=== PATIENT | male | born 1935 | race Caucasian/White ===

== ENCOUNTER 2019-10-11 15:05 | Inpatient (IN) | payer MEDICARE, OTHER ==
[~2019-10-11 15:05] MED LIST: Iopamidol 370 76% 100 ML VIAL ONE
[2019-10-11 17:01] LABS: #Monocytes 1.2 thou/uL (0.11-0.59); #Neutrophils 10.4 thou/uL (1.40-6.50); %Eosinophils 0.3 % (0.0-10.0); %Lymphocytes 14.5 % (21.0-51.0); %Monocytes 8.6 % (0.0-10.0); %Neutrophils 76.6 % (42.0-75.0); Hemoglobin 13.1 g/dL (14.0-18.0); Mean Corpuscular HGB CONC 35.3 g/dL (32.0-36.0); Mean Corpuscular Hemoglobin 29.7 pg (27.0-31.0); Mean Corpuscular Volume 84.3 fL (78.0-98.0); Mean Platelet Volume 9.1 fL (7.4-10.4); Platelet Count 153 thou/uL (130-400); RBC Distribution Width 16.5 % (11.5-14.5); Red Blood Cell (RBC) Count 4.41 mill/uL (4.70-6.10); White Blood Cell (WBC) Count 13.6 thou/uL (4.8-10.8)
[2019-10-11 17:10] LABS: Bacteria/HPF None Seen HPF (None Seen); Bilirubin Negative (Negative); Blood, Urine Trace (Negative); Clarity Clear (Clear); Glucose, Urine (Dipstick) Normal (Negative); Leukocyte 75 Leu/uL (Negative); Nitrite Negative (Negative); Protein, Urine (Dipstick) 20 mg/dL (Neg-Trace); Squamous Epithelial 0-3 HPF (0-3); Urobilinogen Normal mg/dL (Less than 2)
[2019-10-11 17:23] LABS: ALT (SGPT) 10 U/L (8-55); AST (SGOT) 13 U/L (5-34); Albumin 4.2 g/dL (3.4-4.8); Alkaline Phosphatase 90 U/L (40-110); Anion Gap 11 mmol/L (10-20); BUN (Urea Nitrogen) 26 mg/dL (8.4-25.7); Bilirubin, Total 1.7 mg/dL (0.2-1.2); Calc. Creatinine Clearance 0 mL/min (70-130); Calcium 9.7 mg/dL (7.8-10.44); Carbon Dioxide 24 mmol/L (23-31); Chloride 98 mmol/L (98-107); Estimated GFR-MDRD 33; Globulin 2.3 g/dL (2.4-3.5); Glucose 100 mg/dL (83-110); Lipase 6 U/L (8-78); Protein, Total 6.5 g/dL (5.8-8.1); Sodium 128 mmol/L (136-145)
[2019-10-11] MEDS ORDERED: Morphine 4 MG/ML VIAL ONE (17:35)
--- NOTE | 2019-10-11 18:09 | CT ---
CT abdomen and pelvis with IV contrast. Oral contrast was not administered. INDICATIONS: Abdominal pain and constipation COMPARISON: CT abdomen pelvis 01/27/2017 FINDINGS: Large fixed diaphragmatic hernia again noted on images through the lung bases. Stomach is above the d iaphragm. This is stable finding. Liver, spleen, and pancreas appear unremarkable. Abnormal soft tissue density seen in the gallbladder fundus. This could represent sludge although fun gal mass lesion not excluded. This is new finding from prior exam. Duodenum unremarkable. Right adrenal nodular mass lesion measuring 1.5 cm is stable Moderate left hydronephrosis with hydroureter. 7 mm calculus in the distal left ureter. Right kidney unremarkable Small bowel loops are normal caliber and exhibit normal fold pattern. Appendix is identified and appears unremarkable. Scattered stool and gas throughout colon. Aorta is normal caliber. No evidence of retroperitoneal or mesenteric adenopathy. Mild prostatic hypertrophy with prostatic calcifications. Subcutaneous tissues, abdominal wall, and muscular structures appear unremarkable. Osseous structures appear unremarkable. IMPRESSION: 1. 7 mm calculus distal left ureter with moderate left hydronephrosis 2. Soft tissue density in the gallbladder fundus. Gallbladder sludge and stones not excluded. Soft ti ssue mass lesion not excluded. Correlate with elective gallbladder ultrasound. 3. Large fixed diaphragmatic hernia again noted 4. Right adrenal mass lesion is stable
[2019-10-11] MEDS ORDERED: Acetaminophen 325 MG TAB PO PRN (21:22)
[2019-10-11] MEDS ORDERED: Ondansetron PF 4 MG/2 ML Vial IVP PRN (21:22)
[2019-10-11] MEDS ORDERED: Ondansetron ODT 4 MG TAB SL PRN (21:22)
[2019-10-11] MEDS ORDERED: HYDROcodone/Acetaminophen 5/325 mg Tablet PO PRN ×2 (21:22)
[2019-10-11 21:39] VITALS: BMI 28.6
[2019-10-11] MEDS: Sodium Chloride 0.9% 1,000 ML IV SCH (23:25)
--- NOTE | 2019-10-12 01:20 | HP ---
CHIEF COMPLAINT: Abdominal pain. HISTORY OF PRESENT ILLNESS: This patient is 83-year-old male who presented to the emergency department. Patient reports he has had intermittent left lower quadrant pain over the past month or so. Over the last 3 to 4 days, he has had no bowel movement, thought he was constipated. He has a little bit of a difficult historical source, but it sounds like he tried a laxative and was not getting any relief with that. Describes the pain is somewhat positional. Says it is primarily in the left lower quadrant when he is on his left side, it hurts more but sometimes when he lies on his right side, he feels it more on the right side. He does admit to a little bit of associated back pain. He also reports 1 to 2 months of some urinary hesitancy. REVIEW OF SYSTEMS: Patient had one episode of vomiting over the past week. Denies any fevers or chills. He also has had intermittent hiccups that have caused him to have some increased pain in his left lower quadrant as mentioned above, urinary hesitancy. All other systems reviewed and were negative, except for those things mentioned in history of present illness. 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 He has been treated at [facility] by Dr. Desir and states that all of these appeared to be resolved at that time. He has history of hypertension, reflux, hiatal hernia, and abdominal aortic aneurysm. History of atrial fibrillation, not currently on any type of oral anticoagulant therapy for reasons that are not known at the moment, but likely related to his prior hemolytic anemia. PAST SURGICAL HISTORY: Hernia repair x2, repair of a deviated septum, knee surgery, multiple skin surgeries related to various skin cancers. FAMILY HISTORY: Notable for coronary artery disease in his father and a brother who had a history of cancer. SOCIAL HISTORY: Patient is . He and his live themselves. He smoked for about five years remotely. He was a former drinker, has not drank in over 30 years. ALLERGIES: DOXYCYCLINE. CURRENT MEDICATIONS: 1. Metoprolol 50 mg daily. 2. Magnesium 250 mg daily. 3. Ondansetron 8 mg daily p.r.n. nausea, vomiting. 4. B12, 1000 mcg p.o. daily. 5. Multivitamin one p.o. daily. 6. Diltiazem 120 mg daily. 7. Digoxin 0.125 mg p.o. daily. 8. Omeprazole 20 mg daily. 9. Loratadine 10 mg daily. 10. Tamsulosin 0.4 mg at bedtime. 11. Tramadol 50 mg p.o. daily. PHYSICAL EXAMINATION: VITAL SIGNS: Temperature is 97.5, pulse 69, respirations 18, O2 saturation 97% on room air, and BP 134/72. GENERAL APPEARANCE: Age-appropriate male, in no distress. He is hard of hearing, but pleasant and cooperative. HEENT: PERRL. No OP lesions. He does have several scarred areas on his scalp from looks like prior surgical incisions. NECK: Supple and symmetric. HEART: Regular rate and rhythm. No murmurs, gallops, or rubs. LUNGS: Clear to auscultation bilaterally. ABDOMEN: Soft, nontender, and nondistended. Positive bowel sounds. There is very mild left CVAT. EXTREMITIES: No cyanosis, clubbing, or edema. PSYCH: Normal affect and behavior. NEUROLOGIC: Cranial nerves appear to be intact, although he does have some hearing deficit. Cognitively, appears to be generally intact. EXTREMITIES: All move normally. He has a very slightly unsteady gait when getting up and going to the bathroom, but managed well and has no other focal deficits. LABORATORY DATA: White count 13.6, hemoglobin 13.1, and platelets 153. Sodium 128, potassium 5.0, chloride 98, CO2 of 24, BUN 26, creatinine is 1.97, glucose 100, lactic acid 1.2, total bili 1.7, AST 13, ALT 10, albumin 4.2, and lipase 6. Urinalysis notable for leukocyte esterase present, rbc's 4 to 6, wbc [address] abdomen and pelvis reveals a 7 mm left distal ureteral stone with moderate left hydronephrosis. Soft tissue density in the gallbladder fundus, could be stone or sludge. Large fixed diaphragmatic hernia which is stable and right adrenal mass lesion that is also stable. IMPRESSION AND PLAN: 1. Left ureterolithiasis with associated left hydroureter. The patient was discussed with between Dr. Dr. Canada and the emergency room physician. His plan is to have the patient in the hospital and undergo ureteral stent. The patient will be made n.p.o. after midnight, p.r.n. pain medications, and consult Urology officially. 2. Constipation. Patient does not appear to have significant constipation with his CT scan, likely related to his ureterolithiasis. We will await possible stent placement and then consider the possibility of some type of cathartic if necessary at that time. 3. Acute on chronic kidney injury, probably due to the stone. Patient's current GFR is at 33, looks like his baseline ranges in the 50s to 70s. However, his most recent was 51 on August 04. We will give him some fluids and see how he responds after the stone is removed. 4. Hyponatremia. I suspect this is related to the patient's stone. He has had episodes in the past going back to 2014 of some hyponatremia. This does not appear to be terribly severe. He does not appear to be symptomatic and again we will see how he response after the procedure and some hydration. 5. Elevated bilirubin. This is present going back to 2015. Does not appear to be acute. 6. Mild leukocytosis. Really does not appear to have significant evidence of infection in the urine, but he does have a little bit of leukocytosis and a few white blood cells, so I am going to go and cover him with a dose of Rocephin for now. 7. History of atrial fibrillation, currently in sinus rhythm, not on any anticoagulation, but several medications for rate control. We will need to try to investigate further what the reason is for him not being on anticoagulation previously, although at this juncture, probably better that he not be given the need for the stent placement. Job ID: [id number]
[2019-10-12 05:52] LABS: #Eosinphils 0.1 thou/uL (0.0-0.7); #Lymphocytes 1.8 thou/uL (1.20-3.40); #Monocytes 1.3 thou/uL (0.11-0.59); #Neutrophils 9.8 thou/uL (1.40-6.50); %Basophils 0.2 % (0.0-1.0); %Eosinophils 0.6 % (0.0-10.0); %Monocytes 9.7 % (0.0-10.0); %Neutrophils 75.5 % (42.0-75.0); Hemoglobin 12.3 g/dL (14.0-18.0); Mean Corpuscular HGB CONC 34.6 g/dL (32.0-36.0); Mean Corpuscular Hemoglobin 29.1 pg (27.0-31.0); Mean Corpuscular Volume 84.1 fL (78.0-98.0); Mean Platelet Volume 8.8 fL (7.4-10.4); Platelet Count 147 thou/uL (130-400); RBC Distribution Width 16.2 % (11.5-14.5); Red Blood Cell (RBC) Count 4.23 mill/uL (4.70-6.10)
[2019-10-12 06:12] LABS: Anion Gap 12 mmol/L (10-20); BUN (Urea Nitrogen) 22 mg/dL (8.4-25.7); Calc. Creatinine Clearance 36 mL/min (70-130); Calcium 8.7 mg/dL (7.8-10.44); Carbon Dioxide 19 mmol/L (23-31); Chloride 101 mmol/L (98-107); Estimated GFR-MDRD 36; Glucose 90 mg/dL (83-110); Potassium 4.4 mmol/L (3.5-5.1); Sodium 128 mmol/L (136-145)
[2019-10-12] MEDS: traMADol HCl 50 MG TAB PO SCH (09:25)
[2019-10-12] MEDS: Digoxin 0.125 MG TAB PO SCH (09:28)
[2019-10-12] MEDS: Loratadine 10 MG TAB PO SCH (09:28)
[2019-10-12] MEDS: Metoprolol Tartrate 50 MG TAB PO SCH (09:28)
[2019-10-12] MEDS ORDERED: EPHEDRINE 25 MG/5 ML SYRINGE ONE (09:35)
[2019-10-12] MEDS ORDERED: Dexamethasone 20 MG/5 ML VIAL ONE (09:35)
[2019-10-12] MEDS ORDERED: Ondansetron PF 4 MG/2 ML Vial ONE (09:35)
[2019-10-12] MEDS ORDERED: Lidocaine 1% PF 5 ML VIAL ONE (09:35)
[2019-10-12] MEDS ORDERED: PROPOFOL 200 MG/20 ML VIAL ONE (09:35)
[2019-10-12] MEDS ORDERED: PHENYLEPHRINE-NS 100 MCG/ML 10 ML SYRINGE ONE (09:35)
--- NOTE | 2019-10-12 10:50 | CON ---
DATE OF CONSULTATION: 10/12/2019 CONSULTING: Emergency room. REASON FOR CONSULTATION: Ureteral stone with acute kidney injury. HISTORY OF PRESENT ILLNESS: Mr. Chaudhari is an 83-year-old white male, who presented to the emergency department with approximately a 3-day history of severe lower abdominal pain and constipation over the last 3 to 4 days. He states he has not had any bowel movements this time and thought he was constipated. He started taking laxatives and stated that he did get a bowel movement, but was not feeling any better from the lower abdominal pain. It started in the left lower quadrant and then began radiating over to the right lower quadrant. He stated the pain got up to about 8/10 at its worst. After several days of not feeling well, not eating or drinking, his brought him into the emergency room where he underwent a CT scan, which demonstrated a 7-mm distal left ureteral stone. There were no other stones noted at that time. I was then consulted for further assistance on this issue. The patient reports that his primary urologist is Dr. Yordan Yancey. He has had multiple stones in the past, some of which have been treated, most of which have passed on their own. He also has a history of CLL, but this is currently just being monitored without any active chemotherapy. He has not noticed any blood in his urine, but states his urine does appear dark. He denies any fevers. His creatinine was elevated about 1.8 to 1.9 over his baseline of around 1.3. He reports no difficulty with urination, but has only been having small voids over the past few days. He denies any nausea or vomiting currently and again denies any fevers. ALLERGIES: DOXYCYCLINE. CURRENT HOME MEDICATIONS: 1. Metoprolol. 2. Magnesium. 3. Zofran. 4. B12. 5. Multivitamins. 6. Diltiazem. 7. Digoxin. 8. Omeprazole. 9. Loratidine. 10. Tamsulosin. 11. Tramadol. PAST MEDICAL HISTORY: 1. Squamous cell carcinoma of the skin. 2. 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 3. Chronic lymphocytic leukemia. 4. History of hemolytic anemia, requiring blood transfusions. 5. Hypertension. 6. Gastroesophageal reflux disease. 7. Hiatal hernia. 8. Abdominal aortic aneurysm. 9. Atrial fibrillation. PAST SURGICAL HISTORY: 1. Hernia repairs x2. 2. Surgery for deviated septum. 3. Knee surgeries. 4. Skin surgeries related to various skin cancers. FAMILY HISTORY: Significant for coronary artery disease. SOCIAL HISTORY: The patient is . He and his live at home. He has a history of smoking in the past, but states he quit. 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 He denies any illicit drug use. REVIEW OF SYSTEMS: A 12-point review of systems reviewed and negative other than what was commented on the HPI. PHYSICAL EXAMINATION: VITAL SIGNS: Temperature 98.6, pulse 76, respirations 18, blood pressure 126/73, and saturation 95% on room air. GENERAL: No apparent distress. Appears stated age. Communicative and alert. Well nourished and well developed. Average weight. HEENT: Normocephalic and atraumatic. Pupils are symmetric and round. Trachea midline. Moist mucous membranes. CARDIOVASCULAR: Regular rate, irregular rhythm. Normal S1 and S2. Symmetric pulses. CHEST: No increased work of breathing. Symmetric expansion of lungs. Clear anteriorly. ABDOMEN: Soft, nondistended. Slight tenderness to palpation on the right lower quadrant, more tenderness to palpation in the left lower quadrant. Positive bowel sounds. No obvious organomegaly or hernias identified. GENITOURINARY: Deferred at this time. EXTREMITIES: No clubbing, cyanosis, or edema. MUSCULOSKELETAL: No joint deformity or joint erythema noted. Full range of motion. SKIN: Patchy skin appearance secondary to sun damage. No obvious concerning lesions. The patient is alopecic, poor turgor. No other rashes or lesions noted. NEUROLOGIC: Cranial nerves 2 through 12 grossly intact. No focal or sensory motor deficits identified. PSYCHIATRIC: Alert and oriented x3. Appropriate mood and affect. LABORATORY EVALUATION: Full set of labs are in the [facility] system, which I have reviewed. Of note, the patient's white count is 13 with a hemoglobin of 12.3. Creatinine is 1.8 down from 1.97. Urinalysis demonstrates trace blood, 4 to 6 rbc's, 11 to 20 wbc's, no bacteria seen. CT done on 10/10 without contrast demonstrates a 7-mm distal left ureteral stone with hydronephrosis. No other stones identified within the urinary tract. There is a soft tissue density in the gallbladder fundus, a large fixed diaphragmatic hernia again which was noted and a stable right adrenal mass. ASSESSMENT AND PLAN: An 83-year-old white male with a left distal ureteral stone and acute kidney injury with hydronephrosis with no strong evidence of infection currently. That said, given his age, acute kidney injury, slight elevation in white count, and wbc's in the urine, I would not necessarily recommend ureteroscopy at the current time, I think a ureteral stent would be better to allow for his kidney to recover, after which point a urine culture can be taken to ensure that there is no infection. If this is clear, I think the patient can go for ureteroscopy and removal of the stone and subsequent stent removal. I will contact Dr. Yordan Yancey, his primary urologist, for intervention. If Dr. Yancey is not immediately available, I can perform the stent today and the patient can follow up with Dr. Yancey. Alternatively, Dr. Yancey can take the patient for stent today if he deems necessary himself. I have explained the procedure to the patient, involving how ureteral stent is placed with risks and benefits, the risks of which include but are not limited to bleeding, infection, inability to pass the stent, damage to the ureter, kidneys, or bladder, and need for further procedures, such as a nephrostomy tube. He understands this risks as well as the risk of retained stent. He understands the stent cannot stay in him for more than 3 months and that he must keep followup appointments with his primary urologist for ultimate stent removal and stone removal to avoid serious kidney related complications. The patient should remain n.p.o. until he has his ureteral stent placed. Perioperative antibiotics will be given, but I do not see a need for long-term antibiotics in this situation unless the urine culture comes out positive. We will go ahead and add him on for ureteral stent today and again this can either be performed by myself or by Dr. Yordan Yancey, his primary urologist. The patient should follow up with Dr. Yancey as an outpatient for his definitive stone management. Job ID: [id number]
[2019-10-12] MEDS: Sodium Chloride 0.9% 1,000 ML IV SCH (12:20)
[2019-10-12] MEDS ORDERED: Fentanyl 100 MCG/2 ML VIAL ONE (15:19)
[2019-10-12] MEDS ORDERED: Iothalamate Meglumine 60% 50 ML VIAL FS ONE (15:21)
--- NOTE | 2019-10-12 16:07 | PDOC.HOSPP ---
- Subjective Subjective: Seen and examined this a.m. Patient breathing comfortably on room air. Patient having occasional pain in the groin, he is unsure if this is from an old hernia or a kidney stone. Patient has no flank pain at this time. His is at bedside, time was given for questions, all answered in detail. Patient and family are happy with plan of care. - Objective Vital Signs & Weight: Vital Signs (12 hours) Temp Pulse Resp BP BP Pulse Ox 10/12/19 09:28 76 10/12/19 09:26 76 126/73 10/12/19 08:00 95 10/12/19 07:52 98.6 F 72 18 122/75 95 Weight Weight 177 lb 8 oz Result Diagrams: 10/12/19 05:24 10/12/19 05:24 Radiology Reviewed by me: Yes Hospitalist ROS - Review of Systems All other systems reviewed; all pertinent +/- noted in HPI/Subj - Medication Medications: Active Medications Generic Name Dose Route Start Last Admin Trade Name Freq PRN Reason Stop Dose Admin Digoxin 0.125 mg 10/12/19 09:00 10/12/19 09:28 Lanoxin PO 0.125 mg DAILY CORAZON Administration Diltiazem HCl 120 mg 10/12/19 09:00 10/12/19 09:26 Cardizem Cd PO 120 mg DAILY CORAZON Administration Sodium Chloride 1,000 mls @ 75 mls/hr 10/11/19 23:00 10/12/19 12:20 Normal Saline 0.9% IV 1,000 mls .[id number] CORAZON Administration Loratadine 10 mg 10/12/19 09:00 10/12/19 09:28 Claritin PO 10 mg DAILY CORAZON Administration Metoprolol Tartrate 50 mg 10/12/19 09:00 10/12/19 09:28 Lopressor PO 50 mg DAILY CORAZON Administration Tramadol HCl 50 mg 10/12/19 09:00 10/12/19 09:25 Ultram PO 50 mg DAILY CORAZON Administration - Exam General Appearance: NAD, awake alert Eye: anicteric sclera ENT: normocephalic atraumatic, moist mucosa Neck: supple, symmetric, no thyromegaly Heart: no murmur, no gallops, no rubs Respiratory: CTAB, no wheezes, no rales, no ronchi, normal chest expansion Gastrointestinal: soft, non-tender, non-distended, no guarding, no rigidity Extremities: no edema Skin: no lesions, no rashes Neurological: cranial nerve grossly intact, no focal deficits Musculoskeletal: generalized weakness Psychiatric: normal affect, normal behavior, A&O x 3 Hosp A/P (1) JESUS (acute kidney injury) Code(s): N17.9 - ACUTE KIDNEY FAILURE, UNSPECIFIED Status: Acute (2) Nephrolithiasis Status: Acute (3) Flank pain Code(s): R10.9 - UNSPECIFIED ABDOMINAL PAIN Status: Acute (4) Anemia Code(s): D64.9 - ANEMIA, UNSPECIFIED Status: Acute (5) Atrial fibrillation with RVR Code(s): I48.91 - UNSPECIFIED ATRIAL FIBRILLATION Status: Acute (6) BPH (benign prostatic hyperplasia) Code(s): N40.0 - BENIGN PROSTATIC HYPERPLASIA WITHOUT LOWER URINRY TRACT SYMP Status: Chronic Qualifiers: Lower urinary tract symptom presence: presence of symptoms unspecified Qualified Code(s): N40.0 - Benign prostatic hyperplasia without lower urinary tract symptoms (7) CLL (chronic lymphocytic leukemia) Code(s): C91.10 - CHRONIC LYMPHOCYTIC LEUK OF B-CELL TYPE NOT ACHIEVE REMIS Status: Chronic - Plan Plan: medical unit urology consultation, recommendations appreciated stent placement when able, per urology IV fluids for acute kidney injury with hydronephrosis patient is at risk for renal failure if renal function deteriorates we will consult nephrology perioperative antibiotics continue home medications as able blood pressure control blood sugar control G.I. prophylaxis DVT prophylaxis
[2019-10-12] MEDS ORDERED: Promethazine HCl 25 MG/ML VIAL SLOW IVP PRN (16:20)
[2019-10-12] MEDS ORDERED: Ondansetron HCl/PF 4 MG/2 ML Vial IVP PRN (16:20)
[2019-10-12] MEDS ORDERED: Promethazine HCl 25 MG/ML VIAL IM PRN (16:20)
--- NOTE | 2019-10-12 16:33 | CON ---
DATE OF CONSULTATION: 10/12/2019 HISTORY OF PRESENT ILLNESS: This is an 83-year-old white male who I have cared for in my office for a number of years. He has a history of stones. He has a history of lower urinary tract symptoms, for which he takes Flomax. History of hematuria with occasional UTI and also history of lymphocytic leukemia, seen at [facility] for that. He has had 2 to 3 weeks of left lower quadrant and some left flank pain. It got worse yesterday. He was admitted and was found to have a left distal ureteral stone, measuring about 7 mm, with some left hydro. His vital signs were stable. He is still hurting. He is going to come in now for stent placement. He has been n.p.o. since after midnight. MEDICAL HISTORY: 1. Lymphoma. 2. History of aortic aneurysm. 3. Hiatal hernia. 4. Hypertension. 5. Reflux disease. 6. Stones. 7. He has had prior hernia repairs and shockwave lithotripsy. ALLERGIES: DOXYCYCLINE. MEDICATIONS: He is on medicines for blood pressure and for lower urinary tract symptoms. I think he is on Cardizem, Lopressor, and Flomax. PHYSICAL EXAMINATION: ABDOMEN: He does have some left CVA tenderness. His abdomen is soft with some left lower quadrant tenderness. No rebound. No guarding. He is not circumcised. There are no lesions. No phimosis. Testicles descended without mass or tenderness. No inguinal adenopathy. PLAN: The plan will be for cystoscopy, left retrograde, and left stent. He will receive 2 g of Ancef. Job ID: [id number]
--- NOTE | 2019-10-12 16:36 | OP ---
DATE OF PROCEDURE: 10/12/2019 PREOPERATIVE DIAGNOSIS: Left distal ureteral stone. POSTOPERATIVE DIAGNOSIS: Left distal ureteral stone. PROCEDURES PERFORMED: 1. Cystoscopy. 2. Left retrograde. 3. Left stent. ANESTHETIC: General. ESTIMATED BLOOD LOSS: Minimal. FINDINGS: He had a 7-mm stone. We could see it on his KUB. He had a very large prostate and the ureteral orifices were very close to the bladder neck and prostate, they are requiring us to use an angled Glidewire to intubate the left ureteral orifice. The bladder had a small diverticulum. No obvious evidence of tumor. There were no bladder stones. Stents placed were 6-Scottish x 24 cm double-J stent. The string was not left on it. DESCRIPTION OF PROCEDURE: After obtaining written and verbal consent from the patient after receiving IV antibiotics, he was taken to the operating suite. He was placed in supine position on the treatment table. PlexiPulses were placed on his lower extremities and turned on. He was given a general anesthetic and oral obturator intubation. He was placed in the dorsal lithotomy position, sterilely prepped and draped. Fluoroscopy unit was used to take a KUB. The stone was visualized. Cystoscopy was performed with a 22-Scottish sheath. This was well lubricated and passed under direct vision through the male urethra into the bladder with aid of a 30 lens, video camera, and monitor. The bladder was examined and filled and emptied a number of times. We initially attempted to intubate the left ureteral orifice with a 5-Scottish Pollack, but could not make the angle, so we fed through this an angled tipped Glidewire, which were able to intubate the left ureter. It met resistance where the stone was, but was able to manipulate it by and then manipulated the open-ended catheter by that. We drained about 30 mL of a slightly cloudy urine, which was sent for culture. A guidewire was placed through the Pollack catheter. The Pollack catheter was removed and a 6 x 24 Polaris double-J stent was placed over the guidewire and pushed up in place with aid of a pusher, so its proximal end coiled in the renal pelvis and its distal end coiled in the bladder when the wire was removed. At this point, the patient was awakened and extubated and taken by stretcher to recovery room. Job ID: [id number]
[2019-10-12] MEDS ORDERED: Tamsulosin HCl 0.4 MG CAP PO SCH (21:00)
[2019-10-13] MEDS: Sodium Chloride 0.9% 1,000 ML IV SCH (01:09)
[2019-10-13 07:54] VITALS: BP 116/68; TEMP 97.3
[2019-10-13] MEDS: Digoxin 0.125 MG TAB PO SCH (08:28)
[2019-10-13] MEDS: traMADol HCl 50 MG TAB PO SCH (08:29)
[2019-10-13] MEDS: Metoprolol Tartrate 50 MG TAB PO SCH (08:29)
[2019-10-13] MEDS: Loratadine 10 MG TAB PO SCH (08:29)
--- NOTE | 2019-10-13 08:48 | RAD ---
Exam: Retrograde Polygram: HISTORY: Abdominal pain follow-up left ureteral calculus distally FINDINGS: Bond Writer film demonstrates an opacity at the level of the left pelvis which certainly could represent th e obstructing distal left ureteral calculus. Placement of wires and left ureteral stent. IMPRESSION: Left ureteral stent placement.
[2019-10-13] MEDS ORDERED: Nitrofurantoin Macrocrystal 50 MG CAP PO SCH (10:15)
[2019-10-13 11:36] LABS: Anion Gap 12 mmol/L (10-20); BUN (Urea Nitrogen) 23 mg/dL (8.4-25.7); Calc. Creatinine Clearance 55 mL/min (70-130); Calcium 9.2 mg/dL (7.8-10.44); Carbon Dioxide 20 mmol/L (23-31); Chloride 104 mmol/L (98-107); Estimated GFR-MDRD 60; Glucose 146 mg/dL (83-110); Potassium 4.4 mmol/L (3.5-5.1); Sodium 132 mmol/L (136-145)
--- NOTE | 2019-10-13 15:54 | EKG ---
Test Reason : Blood Pressure : / mmHG Vent. Rate : 049 BPM Atrial Rate : 416 BPM P-R Int : 000 ms QRS Dur : 092 ms QT Int : 408 ms P-R-T Axes : 000 062 112 degrees QTc Int : 368 ms Atrial fibrillation with slow ventricular response Nonspecific ST and T wave abnormality Abnormal ECG When compared with ECG of 27-JAN-2017 12:47, Vent. rate has decreased BY 61 BPM Confirmed by KWAKU PIERRE, SJerome ([id number]) on 10/13/2019 3:54:12 PM Referred By: ROMI Confirmed By:DR. Beth AMES MD
--- NOTE | 2019-10-13 18:19 | DIS ---
DATE OF ADMISSION: 10/11/2019 DATE OF DISCHARGE: 10/13/2019 REASON FOR HOSPITALIZATION: Obstructive uropathy secondary to nephrolithiasis requiring acute stent placement. SIGNIFICANT FINDINGS: The patient was found to have 7 mm calculus in the distal left ureter with moderate left hydronephrosis. This was causing the patient to have acute kidney injury, and the patient required admission to acute care hospital. PROCEDURES PERFORMED AND TREATMENTS RENDERED: The patient was admitted to the medical unit for close management. The patient was seen and evaluated by Urology, please see full consultation notes and operative reports for full details. The patient was taken to operating room by Dr. Yancey on 10/12/2019, please see full operative report for details. Dr. Yancey performed cystoscopy with left retrograde and left stent placement. The patient was seen and monitored postoperatively for greater than 24 hours and remained in stable condition. The patient was recommended safe for discharge by Dr. Yancey on 10/13/2019 on oral antibiotics and having close followup in the outpatient setting. I evaluated the patient on 10/13/2019, and he has had normalization of his renal function with his creatinine decreasing from 1.9 down to a level of 1.1. The patient is having zero pulmonary symptoms with no cough, congestion, or sputum. The patient is afebrile, and there are no systemic signs of infection. The patient's electrolytes are otherwise in good repair. The patient was recommended safe for discharge on oral antibiotics with close followup with Urology and primary care physician in the outpatient setting. CONDITION ON DISCHARGE: Stable. SPECIFIC INSTRUCTIONS FOR THE PATIENT/FAMILY: 1. The patient is recommended to complete a full course of oral antibiotics per Urology. 2. The patient is recommended to take all other home medications as directed. 3. The patient is recommended to follow up with primary care physician in the next 5 to 7 days. 4. The patient is recommended to follow up with Urology in the next 1 to 2 weeks. 5. The patient is recommended to return to acute care hospital immediately if signs or symptoms return, worsen, or any other new symptoms occur. DISCHARGE MEDICATIONS: 1. Metoprolol tartrate 50 mg one tablet p.o. daily. 2. Magnesium 250 mg one tablet p.o. daily. 3. Zofran 8 mg p.o. daily p.r.n. nausea and vomiting. 4. Vitamin B12 of 1000 mcg one tablet p.o. daily. 5. Multivitamin one tablet p.o. daily. 6. Diltiazem 120 mg one tablet p.o. daily. 7. Digoxin 0.125 mg one tablet p.o. daily. 8. Omeprazole 20 mg one tablet p.o. daily. 9. Claritin 10 mg one tablet p.o. daily. 10. Flomax 0.4 mg one tablet p.o. at bedtime. 11. Tramadol 50 mg one tablet p.o. daily. 12. Nitrofurantoin 100 mg one tablet p.o. daily, for the next 30 days, this medication was sent to his preferred pharmacy and this is the only medication. Greater than 34 minutes spent in coordinating care and discharge process for this patient. Job ID: [id number]
[2019-10-14] MEDS ORDERED: Nitrofurantoin Macrocrystal 50 MG CAP PO SCH (09:00)
== END 2019-10-13 14:14 | disposition home or self-care (01) | DRG 660 ==
LOC: ERS 15:05 → T4-B 19:59
PROVIDERS: ADMIT Internal Medicine; ATTEND Internal Medicine
PROC: 0T778DZ Dilation of Left Ureter with Intraluminal Device, Via Natural or Artificial Opening Endoscopic (ICD-10-PCS; principal; 2019-10-12)
PROC: BT1F1ZZ Fluoroscopy of Left Kidney, Ureter and Bladder using Low Osmolar Contrast (ICD-10-PCS; 2019-10-12)
DX: N13.2 Hydronephrosis with renal and ureteral calculous obstruction (principal); C91.10 Chronic lymphocytic leukemia of B-cell type not having achieved remission; E87.1 Hypo-osmolality and hyponatremia; D58.9 Hereditary hemolytic anemia, unspecified; N17.9 Acute kidney failure, unspecified; I48.91 Unspecified atrial fibrillation; K59.00 Constipation, unspecified; I12.9 Hypertensive chronic kidney disease with stage 1 through stage 4 chronic kidney disease, or unspecified chronic kidney disease; D63.1 Anemia in chronic kidney disease; C80.1 Malignant (primary) neoplasm, unspecified; N18.9 Chronic kidney disease, unspecified; K21.9 Gastro-esophageal reflux disease without esophagitis; Z90.49 Acquired absence of other specified parts of digestive tract; Z79.01 Long term (current) use of anticoagulants
CPT/HCPCS: 36415; 74177; 74420; 80048; 80053; 81003; 81015; 83605; 83690; 85025; 87086; 93005; 93010; 96361; 96374; C1758; C1769; J0690; J1100; J2001; J2270; J2405; J2704; J3010; Q9967

== ENCOUNTER → 2019-11-14 | Day surgery (SDC) | payer MEDICARE, OTHER ==
[2019-11-13 13:21] VITALS: BMI 22.9
[~2019-11-14] MED LIST changes: +EPHEDRINE 25 MG/5 ML SYRINGE ONE; +Fentanyl 100 MCG/2 ML VIAL ONE; +Glycopyrrolate 0.2 MG/ML 5 ML SYRINGE ONE; -Iopamidol 370 76% 100 ML VIAL ONE; +Iothalamate Meglumine 60% 50 ML VIAL FS ONE; +Lidocaine 1% PF 5 ML VIAL ONE; +PHENYLEPHRINE-NS 100 MCG/ML 10 ML SYRINGE ONE; +PROPOFOL 200 MG/20 ML VIAL ONE; +Rocuronium Bromide 10 MG/ML (10ML VIAL) ONE; +Succinylcholine Chloride 20 MG/ML 10 ml SYRINGE FS ONE; +Tamsulosin HCl 0.4 MG CAP ONE
[2019-11-14 08:14] LABS: #Basophils 0.1 thou/uL (0.0-0.2); #Eosinphils 0.2 thou/uL (0.0-0.7); #Lymphocytes 2.2 thou/uL (1.20-3.40); #Monocytes 0.6 thou/uL (0.11-0.59); #Neutrophils 4.4 thou/uL (1.40-6.50); %Basophils 0.7 % (0.0-1.0); %Eosinophils 2.9 % (0.0-10.0); %Lymphocytes 29.4 % (21.0-51.0); %Monocytes 8.2 % (0.0-10.0); %Neutrophils 58.8 % (42.0-75.0); Hemoglobin 13.5 g/dL (14.0-18.0); Mean Corpuscular HGB CONC 33.3 g/dL (32.0-36.0); Mean Corpuscular Volume 83.9 fL (78.0-98.0); Mean Platelet Volume 7.5 fL (7.4-10.4); Platelet Count 209 thou/uL (130-400); RBC Distribution Width 14.7 % (11.5-14.5); Red Blood Cell (RBC) Count 4.83 mill/uL (4.70-6.10); White Blood Cell (WBC) Count 7.5 thou/uL (4.8-10.8)
[2019-11-14 08:24] LABS: INR-International Normal Ratio 1.1; PTT 30.9 SEC (22.9-36.1); Prothrombin Time 14.5 SEC (12.0-14.7)
[2019-11-14 08:28] LABS: Anion Gap 14 mmol/L (10-20); BUN (Urea Nitrogen) 18 mg/dL (8.4-25.7); Calc. Creatinine Clearance 46 mL/min (70-130); Carbon Dioxide 23 mmol/L (23-31); Chloride 106 mmol/L (98-107); Estimated GFR-MDRD 54; Glucose 106 mg/dL (83-110); Potassium 4.5 mmol/L (3.5-5.1); Sodium 138 mmol/L (136-145)
--- NOTE | 2019-11-14 11:25 | OP ---
DATE OF PROCEDURE: 11/14/2019 PREOPERATIVE DIAGNOSIS: Left ureteral stone. POSTOPERATIVE DIAGNOSIS: Left ureteral stone. PROCEDURES PERFORMED: Cystoscopy, removal of left stent, left rigid ureteroscopy with laser lithotripsy, and stent replacement. ANESTHETIC: General. ESTIMATED BLOOD LOSS: Minimal. FINDINGS: He had a left distal ureteral stone that was broken up with the laser and the fragments flushed into the bladder. They are ones that were of any size, these were elected out and sent for stone analysis. DRAINS PLACED: A 4.8 x 26 cm double-J stent with a string attached. DESCRIPTION OF PROCEDURE: Obtained written and verbal consent from the patient after receiving IV antibiotics, he was taken to the operating suite. Placed in a supine position on the treatment table. PlexiPulses placed on his lower extremities and turned on. He was given a general anesthetic and oral obturator intubation. He was placed in dorsal lithotomy position, sterilely prepped and draped. The fluoroscopy was brought in and placed over him to use for imaging. Cystoscopy was then performed with a 22-Nigerian sheath. This was well lubricated and passed under direct vision through the male urethra into the urinary bladder with aid of video camera and a 30-degree lens and monitor. The bladder was filled and emptied number of times. The distal end of the stent was grasped and brought out through the urethral meatus. A guidewire was fed up through it and the stent was removed over the wire and discarded. A small caliber graduated rigid ureteroscope was brought in and passed under direct vision through the male urethra into the bladder and up to the left ureter. The stone was about 3 cm up the left ureter. A small caliber holmium laser fiber was brought in and used to fragment the stone into smaller and smaller pieces, which is some of those fragments up to about the mid ureter, did not see anything past that point. Most of the fragments passed into the bladder, not even required Nitinol basket removal. At this point, the guidewire that had been left in. Over that, we loaded a 5-Nigerian Pollack catheter, placed up in the region of the renal pelvis, removed the wire, injected contrast filling up the calyceal system entire ureter. No filling defects. No obstruction. No extravasation. The wire was replaced. The Pollack was removed and then a stent was passed over the guidewire and pushed up into place with aid of a pusher. Its proximal end coiled in the upper pole calyx and distal end coiled in the bladder. String was left attached coming out urinary bladder. We then used the Ellik and the 22-Nigerian sheath to evacuate the smaller stone fragments from the bladder. We reinspected. There were no fragments remaining and the bladder was drained. The instruments were removed. He was taken out of dorsal lithotomy position, awakened, extubated, and taken by stretcher to the recovery room. Job ID: [id number]
--- NOTE | 2019-11-14 11:31 | RAD ---
RETROGRADE PYELOGRAM: Date: 11/14/2019 HISTORY: Stent placement, left ureteral calculus. COMPARISON: 10/12/2019. FINDINGS: There is a somewhat irregular abnormal opacity adjacent to the lateral aspect of the distal left uret eral stent, evidence for a retained calculus within the left ureter. On additional images, the previo usly noted distal ureteral calculus is not redemonstrated. Consider short-term follow-up. IMPRESSION: Distal left ureteral calculus with left ureteral stent in place. The last image does not redemonstrat e the distal left ureteral calculus. Consider short-term follow-up. POS: RRE
--- NOTE | 2019-11-14 17:40 | EKG ---
Test Reason : PREOP Blood Pressure : / mmHG Vent. Rate : 059 BPM Atrial Rate : 277 BPM P-R Int : 000 ms QRS Dur : 098 ms QT Int : 418 ms P-R-T Axes : 000 051 092 degrees QTc Int : 413 ms Atrial fibrillation with slow ventricular response Nonspecific ST abnormality Abnormal ECG When compared with ECG of 12-OCT-2019 15:40, No significant change was found Confirmed by DR. Smith PEREZ ([id number]) on 11/14/2019 5:40:38 PM Referred By: YE Confirmed By:DR. Smith PEREZ
== END ==
LOC: SDC 06:33
PROVIDERS: ATTEND Urology
PROC: 0TC78ZZ Extirpation of Matter from Left Ureter, Via Natural or Artificial Opening Endoscopic (ICD-10-PCS; principal; 2019-11-14)
PROC: 0T778DZ Dilation of Left Ureter with Intraluminal Device, Via Natural or Artificial Opening Endoscopic (ICD-10-PCS; 2019-11-14)
DX: N20.1 Calculus of ureter (principal); I10 Essential (primary) hypertension; K21.9 Gastro-esophageal reflux disease without esophagitis; G47.33 Obstructive sleep apnea (adult) (pediatric); I71.4 Abdominal aortic aneurysm, without rupture; Z85.6 Personal history of leukemia; Z87.891 Personal history of nicotine dependence; Z79.899 Other long term (current) drug therapy; Z88.1 Allergy status to other antibiotic agents
CPT/HCPCS: 52356; 74420; 80048; 82365; 85025; 85610; 85730; 88300; 93005; J0690; J3010; 36415; 51798; 93010; C1758; J2001; J2704